=== PATIENT | female | born 1950 | race Caucasian/White ===

== ENCOUNTER 2023-04-20 13:31 | Emergency (ER) | payer OTHER ==
--- OUTSIDE RECORDS SUMMARY | 2023-04-20 13:35 | XMS REPORT | Continuity of Care Document ---
:[address] [facility] t Address [address] [facility] [address] [place] [address] Care Team Providers Name Role Phone Asked, No Pcp Primary Care Physician Unavailable PAULA GONSALES Attending Clinician Unavailable Problems This patient has no known problems. Allergies, Adverse Reactions, Alerts This patient has no known allergies or adverse reactions. Social History Social Habit Start Date Stop Date Quantity Comments Source Gender identity [facility] Sexual orientation Method [facility] Sex Assigned At [birth year] Met [facility] 00:00:00 00:00:00 Smoking Status Start Date Stop Date Source Tobacco smoking consumption unknown [facility] Medications This patient has no known medications. Immunizations Ordered Immunization Filled Immunization Date Status Commen ts Source Name Name PFIZER COVID-19 MRNA 2021-09-23 Completed [facility] VACCINATION 00:00:00 Hospital PFIZER COVID-19 MRNA 2021-01-22 Completed Meth odist VACCINATION 00:00:00 [facility] PFIZER COVID-19 MRNA 2021-01-01 Completed Meth odist VACCINATION 00:00:00 Hospital Procedures This patient has no known procedures. Plan of Care Planned Activity Planned Date Details Comments Source Future Scheduled 2023-03-02 SHINGLES VACCINES (1 Met [facility] Test 12:00:26 of 2) [code = SHINGLES VACCINES (1 of 2)] Future Scheduled 2023-03-02 65+ PNEUMOCOCCAL [facility] Test 12:00:26 VACCINE (1 - PCV) [code = 65+ PNEUMOCOCCAL VACCINE (1 - PCV)] Future Scheduled 2023-03-02 COVID-19 VACCINE (4 - Me [facility] Test 12:00:26 Booster for Pfizer series) [code = COVID-19 VACCINE (4 - Booster for Pfizer series)] Future Scheduled 2023-03-02 INFLUENZA [facility]ACCINE [facility] 12:00:26 [code = INFLUENZA VACCINE] Future Scheduled 2023-03-02 BREAST CANCER [facility] Test 12:00:26 SCREENING [code = BREAST CANCER SCREENING] Future Scheduled 2023-03-02 COLONOSCOPY SCREENING [facility] Test 12:00:26 [code = COLONOSCOPY SCREENING] Encounters Start End Encounter Admission Attending Care Care Encounter Source Date/Time Date/Time Type Type Clinicians Facility Department ID 2021-09-23 2021-09-23 Outpatient [facility] [id number] [place] 00:00:00 00:00:[address] 2021-01-22 2021-01-22 Outpatient DRU [facility] [id number] [place] 00:00:00 00:00:00 PAULA [address] 2021-01-01 2021-01-01 Outpatient [facility] [id number] [place] 00:00:00 00:00:[address] Results This patient has no known results.
[2023-04-20 14:07] LABS: Absolute Lymphocytes (CBC) 2.2 K/uL (0.7-4.9); Hematocrit 42.6 % (36.0-45.0); Lymphocytes % 25.6 % (15.3-44.8); MCV 88.5 fL (80-100); MPV 8.8 fL (7.6-11.3); RBC Red Blood Cell Count 4.82 M/uL (3.86-4.86)
[2023-04-20 14:38] LABS: Albumin 3.5 g/dL (3.4-5.0); Bilirubin Direct 0.2 mg/dL (0-0.2); Bilirubin Indirect, Calculated 0.5 mg/dL (0.2-0.8); Bilirubin Total 0.7 mg/dL (0.2-1.0); Potassium 2.8 mEq/L (3.5-5.1); Protein, Total 6.9 g/dL (6.4-8.2); Troponin High Sensitivity 4.1 pg/mL (<58.9)
[2023-04-20] MEDS ORDERED: POTASSIUM CL SA 10 MEQ TAB PO ONE (15:08)
[2023-04-20] MEDS ORDERED: KCL 20 MEQ/100 mL IVPB 100 ML IV ONE (15:08)
[2023-04-20] MEDS ORDERED: NA CHLORIDE 0.9% 1,000 ML ONE (15:55)
--- NOTE | 2023-04-20 17:28 | RAD REPORT ---
EXAM DESCRIPTION: CT - Abdomen Pelvis W Contrast - 04/20/2023 4:24 pm CLINICAL HISTORY: Abdominal pain/left lower quadrant pain COMPARISON: 2014 TECHNIQUE: Computed axial tomography of the abdomen pelvis was obtained. 100 cc Isovue-300 was admin istered intravenously. Oral contrast was not requested which limits evaluation of bowel and appendix All CT scans are performed using dose optimization technique as appropriate and may include automated exposure control or mA/KV adjustment according to patient size. FINDINGS: The liver, spleen, pancreas, adrenal and right kidney appear unremarkable. Small nonobstru cting left renal calculus There is no evidence of diverticulitis. Cholecystectomy. Tiny umbilical hernia Hysterectomy. No adnexal mass IMPRESSION: No acute abnormality is displayed.
--- NOTE | 2023-04-20 17:32 | ER ---
Nurse's Notes [facility] Name: Toshia Steel Age: 73 yrs Sex: Female : 1950 Arrival Date: 04/20/2023 Time: 13:31 Bed 6 Private MD: Diagnosis: Diarrhea, unspecified;Syncope Near Presentation: 04/20 13:36 Chief complaint: EMS states: toned out to [facility] for abdominal cramping, ld1 diaphoresis attempting to have bowel movement. Pt reports episode of ASHOK arm weakness "Funny feeling." Diaphoretic upon arrival, c/o abdominal pain. Coronavirus screen: At this time, the client does not indicate any symptoms associated with coronavirus-19. Ebola Screen: No symptoms or risks identified at this time. Initial Sepsis Screen: Does the patient meet any 2 criteria? No. Patient's initial sepsis screen is negative. Does the patient have a suspected source of infection? No. Patient's initial sepsis screen is negative. Risk Assessment: Do you want to hurt yourself or someone else? Patient reports no desire to harm self or others. Onset of symptoms was April 20, 2023. 13:36 Method Of Arrival: EMS: [facility] ld1 13:36 Acuity: JORDAN 3 ld1 Triage Assessment: 13:38 General: Appears in no apparent distress. comfortable, Behavior is cooperative, ld1 anxious. Pain: Complains of pain in abdomen Pain does not radiate. Pain currently is 8 out of 10 on a pain scale. Quality of pain is described as throbbing. EENT: No signs and/or symptoms were reported regarding the EENT system. Neuro: Level of Consciousness is awake, alert, obeys commands, Oriented to person, place, time, situation. Cardiovascular: Capillary refill < 3 seconds Patient's skin is warm and dry. Cardiovascular:. Respiratory: Airway is patent Respiratory effort is even, unlabored. GI: Abdomen is round non-distended, Reports lower abdominal pain, upper abdominal pain. : No signs and/or symptoms were reported regarding the genitourinary system. Derm: Skin is diaphoretic. Musculoskeletal: No signs and/or symptoms reported regarding the musculoskeletal system. Historical: - Allergies: 13:38 PENICILLINS; ld1 13:38 Sulfa (Sulfonamide Antibiotics); ld1 - Home Meds: 13:38 Lexapro 30 mg Oral tab 1 tab once daily [Active]; hydrochlorothiazide 25 mg oral tablet ld1 once [Active]; lisinopril 10 mg Oral tab 1 tab once daily [Active]; aspirin 81 mg Oral TbEC 1 tab once daily [Active]; - PMHx: 13:38 Breast Fibroids; Crohn's; Hypertension; ld1 - PSHx: 13:38 Total abdominal hysterectomy; Cholecystectomy; Breast augmentation; ld1 - Immunization history:: Adult Immunizations up to date, Client reports receiving the 2nd dose of the Covid vaccine. - Social history:: Smoking status: Patient denies any tobacco usage or history of. Patient/guardian denies using alcohol. Screenin:41 [facility] ED Fall Risk Assessment (Adult) History of falling in the last 3 months, ld1 including since admission No falls in past 3 months (0 pts). Abuse screen: Denies threats or abuse. Denies injuries from another. Nutritional screening: No deficits noted. Tuberculosis screening: No symptoms or risk factors identified. Assessment: 13:41 Reassessment: See triage assessment. ld1 15:00 Reassessment: Patient appears in no apparent distress at this time. No changes from ld1 previously documented assessment. 17:30 Reassessment: Patient appears in no apparent distress at this time. No changes from ld1 previously documented assessment. Patient and/or family updated on plan of care and expected duration. Pain level reassessed. Patient is alert, oriented x 3, equal unlabored respirations, skin warm/dry/pink. Vital Signs: 13:36 BP 82 / 69; Pulse 81; Resp 28; Temp 97.6(TE); Pulse Ox 100% on R/A; Weight 78 kg; Pain ld1 8/10; 14:12 BP 99 / 57; Pulse 81; Resp 10; Pulse Ox 98% ; ld1 15:15 BP 125 / 50; Pulse 83; Resp 18; Pulse Ox 100% on R/A; ld1 16:02 BP 124 / 63; Pulse 83; Pulse Ox 98% on R/A; ap3 17:27 BP 135 / 86; Pulse 83; Resp 18; Pulse Ox 100% on R/A; ld1 17:30 BP 141 / 79; Pulse 81; Resp 18; Pulse Ox 100% on R/A; ld1 13:36 Pain Scale: Adult ld1 ED Course: 13:33 Patient arrived in ED. kj1 13:36 Paloma Gallagher, RN is Primary Nurse. ld1 13:37 Wayne Painter MD is Attending Physician. bs3 13:38 Triage completed. ld1 13:38 Arm band placed on right wrist. ld1 13:41 Patient has correct armband on for positive identification. Placed in gown. Bed in low ld1 position. Call light in reach. Side rails up X2. monitoring tech on. Pulse ox on. NIBP on. Door closed. Noise minimized. Warm blanket given. 13:41 No provider procedures requiring assistance completed. Maintain EMS IV. Dressing ld1 intact. Good blood return noted. Site clean \\T\\ dry. Gauge \\T\\ site: 20G LAC. 14:39 Chest Single View XRAY In Process Unspecified. EDMS 16:26 CT Abd/Pelvis - IV Contrast Only In Process Unspecified. EDMS 17:30 IV discontinued, intact, bleeding controlled, No redness/swelling at site. ld1 Administered Medications: 13:54 Drug: NS 0.9% IV 1000 ml Route: IV; Rate: 1000 ml; Site: right antecubital; ld1 15:11 Drug: Potassium Chloride IV 20 mEq Route: IV; Rate: bolus; Site: left antecubital; ld1 15:11 Drug: Potassium Chloride PO 40 mEq Route: PO; ld1 Medication: 13:41 VIS not applicable for this client. ld1 Outcome: 17:30 Discharged to home ambulatory, with family. ld1 17:30 Condition: stable 17:30 Discharge instructions given to patient, family, Instructed on discharge instructions, follow up and referral plans. Demonstrated understanding of instructions, follow-up care. 17:31 Discharge ordered by . bs3 18:05 Patient left the ED. ld1 Signatures: Dispatcher [employer] EDMS Roxane Schaffer RN RN ap3 Jackson, Kandis kj1 Paloma Gallagher RN RN ld1 Wanye Painter MD MD bs3
--- NOTE | 2023-04-20 17:32 | EDPHYS ---
Physician Documentation [facility] Name: Toshia Steel Age: 73 yrs Sex: Female : 1950 Arrival Date: 04/20/2023 Time: 13:31 Bed 6 Private MD: ED Physician Wayne Painter HPI: 04/20 13:45 This 73 yrs old Female presents to ER via EMS with complaints of tingling, bs3 generalized weakness. 13:45 73yo f hx of crohn's, htn presents with episode of syncope. She was straining on the bs3 toilet after eating something funny and then had approximately 2L of diarrhea. She got lightheaded, dizzy, felt like she was going to pass out and developed tinging in her left arm and right fingers. She now notes that her abdominal cramping is significantly better she denies any chest pain or shortness of breath. Historical: - Allergies: 13:38 PENICILLINS; ld1 13:38 Sulfa (Sulfonamide Antibiotics); ld1 - Home Meds: 13:38 Lexapro 30 mg Oral tab 1 tab once daily [Active]; hydrochlorothiazide 25 mg oral tablet ld1 once [Active]; lisinopril 10 mg Oral tab 1 tab once daily [Active]; aspirin 81 mg Oral TbEC 1 tab once daily [Active]; - PMHx: 13:38 Breast Fibroids; Crohn's; Hypertension; ld1 - PSHx: 13:38 Total abdominal hysterectomy; Cholecystectomy; Breast augmentation; ld1 - Immunization history:: Adult Immunizations up to date, Client reports receiving the 2nd dose of the Covid vaccine. - Social history:: Smoking status: Patient denies any tobacco usage or history of. Patient/guardian denies using alcohol. ROS: 13:45 Constitutional: Negative for fever, chills bs3 13:45 All other systems are negative. Exam: 13:45 Constitutional: This is a well developed, well nourished patient who is awake, alert, bs3 and in no acute distress. Head/Face: Normocephalic, atraumatic. Eyes: Pupils equal round and reactive to light, extra-ocular motions intact. Lids and lashes normal. ENT: mmm, no posterior phyarngeal erythema Neck: Trachea midline, no thyromegaly, no neck stiffness Chest/axilla: Normal chest wall appearance and motion. Nontender with no deformity. No lesions are appreciated. Cardiovascular: Regular rate and rhythm with a normal S1 and S2. symmetric pulses in upper extremities Respiratory: Lungs have equal breath sounds bilaterally, clear to auscultation, no respiratory distress Abdomen/GI: Soft, non-tender, no rebound or guarding Skin: Warm, dry with normal turgor. Normal color with no rashes, no lesions, and no evidence of cellulitis. MS/ Extremity: Pulses equal, no cyanosis. Neurovascular intact. Full, normal range of motion. Neuro: Awake and alert, GCS 15, oriented to person, place, time, and situation. Cranial nerves II-XII grossly intact. Motor strength 5/5 in all extremities. Sensory grossly intact. 14:45 Normal sinus rhythm [address] elevations or depressions QTc 493 [address] no bs3 block as interpreted by myself Vital Signs: 13:36 BP 82 / 69; Pulse 81; Resp 28; Temp 97.6(TE); Pulse Ox 100% on R/A; Weight 78 kg; Pain ld1 8/10; 14:12 BP 99 / 57; Pulse 81; Resp 10; Pulse Ox 98% ; ld1 15:15 BP 125 / 50; Pulse 83; Resp 18; Pulse Ox 100% on R/A; ld1 16:02 BP 124 / 63; Pulse 83; Pulse Ox 98% on R/A; ap3 17:27 BP 135 / 86; Pulse 83; Resp 18; Pulse Ox 100% on R/A; ld1 17:30 BP 141 / 79; Pulse 81; Resp 18; Pulse Ox 100% on R/A; ld1 13:36 Pain Scale: Adult ld1 MDM: 13:35 Patient medically screened. bs3 13:45 Data reviewed: vital signs, nurses notes. ED course: Patient with presyncope in the bs3 setting of straining during a bowel movement likely related to vasovagal response she is relatively hypotensive here this may be simply be fluid shifts given her voluminous diarrhea she has no chest pain or shortness of breath I doubt she has a dissection or AAA but we will do serial exams give fluid and observe. 17:31 ED course: CT negative for acute pathology will discharge home. bs3 04/20 13:44 Order name: Basic Metabolic Panel; Complete Time: 14:44 bs3 04/20 13:44 Order name: CBC with Diff; Complete Time: 14:44 04/20 13:44 Order name: Troponin HS; Complete Time: 14:44 04/20 13:44 Order name: LFT's; Complete Time: 14:44 bs3 04/20 13:56 Order name: Chest Single View XRAY 04/20 15:45 Order name: CT Abd/Pelvis - IV Contrast Only; Complete Time: 17:31 bs3 04/20 13:44 Order name: EKG; Complete Time: 13:45 bs04/20 13:44 Order name: Cardiac monitoring; Complete Time: 13:46 04/20 13:44 Order name: EKG - Nurse/Tech; Complete Time: 14:03 04/20 13:44 Order name: IV Saline Lock; Complete Time: 13:54 bs04/20 13:44 Order name: Labs collected and sent; Complete Time: 13:54 04/20 13:44 Order name: O2 Per Protocol; Complete Time: 13:46 04/20 13:44 Order name: O2 Sat Monitoring; Complete Time: 13:46 bs3 Administered Medications: 13:54 Drug: NS 0.9% IV 1000 ml Route: IV; Rate: 1000 ml; Site: right antecubital; ld1 15:11 Drug: Potassium Chloride IV 20 mEq Route: IV; Rate: bolus; Site: left antecubital; ld1 15:11 Drug: Potassium Chloride PO 40 mEq Route: PO; ld1 Disposition Summary: 04/20/23 17:31 Discharge Ordered Location: Home bs3 Problem: new bs3 Symptoms: have improved bs3 Condition: Stable bs3 Diagnosis - Diarrhea, unspecified bs3 - Syncope Near bs3 Followup: bs3 - With: Private Physician - When: 2 - 3 days - Reason: Re-evaluation by your physician Discharge Instructions: - Discharge Summary Sheet bs3 - Diarrhea, Adult bs3 - Syncope bs3 Forms: - Medication Reconciliation Form bs3 - Thank You Letter bs3 - Antibiotic Education bs3 - Prescription Opioid Use bs3 Signatures: Dispatcher [employer] EDMS Paloma Gallagher RN RN ld1 Wayne Painter MD MD bs3
[2023-04-20 18:10] VITALS: TEMP 97.6
[2023-04-20 18:15] VITALS: O2SAT 100
[2023-04-20 18:16] VITALS: BP 141/79
--- NOTE | 2023-04-20 21:54 | RAD REPORT ---
EXAM DESCRIPTION: [facility] Single View04/20/2023 9:41 pm CLINICAL HISTORY: cough COMPARISON: none FINDINGS: The lungs appear clear of acute infiltrate. The heart is normal size IMPRESSION: No acute abnormalities displayed
--- NOTE | 2023-04-23 07:33 | EKG ---
Test Date: 2023-04-20 Test Time: 14:01:29 Production Gear Cutter: BP MEASUREMENT RESULTS: Intervals: Rate: 83 MA: 176 QRSD: 88 QT: 420 QTc: 493 Sharon: P: 31 MA: 176 QRS: 25 T: 89 INTERPRETIVE STATEMENTS: Normal sinus rhythm Lateral infarct, age undetermined Abnormal ECG No previous ECG available for comparison Electronically Signed On 04-23-23 07:26:08 CDT by Jaden Hanks
== END 2023-04-20 18:05 | disposition home or self-care (01) ==
LOC: ER 13:31
DX: R55 Syncope and collapse (principal); R19.7 Diarrhea, unspecified; I10 Essential (primary) hypertension; Z79.82 Long term (current) use of aspirin; Z88.0 Allergy status to penicillin; Z88.2 Allergy status to sulfonamides; Z98.82 Breast implant status
CPT/HCPCS: 93005; 85025; 80048; 36415; 80076; 84484; 74177; 71045; 96374; 99285; Q9967; J3480; J7030

== ENCOUNTER 2024-04-02 16:29 | Emergency (ER) | payer OTHER ==
[2024-04-02] MEDS ORDERED: NA CHLORIDE 0.9% 1,000 ML ONE (17:07)
[2024-04-02 17:22] LABS: Absolute Eosinophils 0.1 K/uL (0-0.5); Absolute Lymphocytes (CBC) 1.5 K/uL (0.7-4.9); Absolute Monocytes 0.3 K/uL (0.1-1.3); Absolute Neutrophil 3.4 K/uL (1.8-8.0); Basophils % 0.8 % (0-1.3); Eosinophils % 1.5 % (0-4.4); Hematocrit 39.7 % (36.0-45.0); Hemoglobin 13.2 g/dL (12.0-15.0); Lymphocytes % 28.5 % (15.3-44.8); MCH 29.6 pg (27.0-35.0); MCHC 33.2 g/dL (32.0-36.0); MCV 89.4 fL (80-100); MPV 7.8 fL (7.6-11.3); Monocytes % 5.9 % (3.3-12.3); Neutrophils % 63.3 % (41.7-73.7); Platelets 388 thou/uL (152-406); RBC Red Blood Cell Count 4.45 M/uL (3.86-4.86); Red Cell Distribution Width 12.9 % (12.1-15.2)
[2024-04-02 17:32] LABS: PT Prothrombin Time 10.6 SECONDS (9.5-12.5); Protime INR 0.96
[2024-04-02 17:41] LABS: Anion Gap 5.6 mEq/L (5.0-15.0); Potassium 3.6 mEq/L (3.5-5.1)
--- NOTE | 2024-04-02 18:48 | RAD REPORT ---
[facility] CLINICAL HISTORY: PALPITATIONS COMPARISON: Chest Single View dated 04/20/2023; Abdomen 1 View (KUB) dated 09/15/2017 TECHNIQUE: Portable AP view of the chest. FINDINGS: The lungs are clear. Left basilar atelectasis, stable. No pneumothorax or effusion. The ca rdiomediastinal contours are unremarkable. IMPRESSION: No acute cardiopulmonary process.
--- NOTE | 2024-04-02 18:56 | ER ---
Nurse's Notes [facility] Name: Toshia Steel Age: 74 yrs Sex: Female : 1950 Arrival Date: 04/02/2024 Time: 16:29 Bed DIS2 Private MD: Diagnosis: Palpitations;Dehydration Presentation: 04/02 16:45 Chief complaint: Patient states: pt was working out in her garage and felt dizzy and as6 like her heart was beating fast. Coronavirus screen: At this time, the client does not indicate any symptoms associated with coronavirus-19. Ebola Screen: No symptoms or risks identified at this time. Initial Sepsis Screen: Does the patient meet any 2 criteria? No. Patient's initial sepsis screen is negative. Does the patient have a suspected source of infection? No. Patient's initial sepsis screen is negative. Risk Assessment: Do you want to hurt yourself or someone else? Patient reports no desire to harm self or others. Onset of symptoms was April 02, 2024. 16:45 Method Of Arrival: Ambulatory as6 16:45 Acuity: JORDAN 3 as6 Triage Assessment: 16:46 General: Appears in no apparent distress. Behavior is calm, cooperative. Pain: Denies as6 pain. Neuro: Reports dizziness. Historical: - Allergies: 16:46 PENICILLINS; as6 16:46 Sulfa (Sulfonamide Antibiotics); as6 - PMHx: 16:46 Breast Fibroids; Crohn's; Hypertension; as6 - PSHx: 16:46 breast augmentation; Cholecystectomy; Total abdominal hysterectomy; as6 - Immunization history:: Adult Immunizations up to date. - Infectious Disease History:: Denies. - Social history:: Smoking status: Patient denies any tobacco usage or history of. - Family history:: not pertinent. - Hospitalizations: : No recent hospitalization is reported. Screenin:50 [facility] ED Fall Risk Assessment (Adult) History of falling in the last 3 months, rs5 including since admission No falls in past 3 months (0 pts) Confusion or Disorientation No (0 pts) Intoxicated or Sedated No (0 pts) Impaired Gait No (0 pts) Mobility Assist Device Used No (0 pt) Altered Elimination No (0 pt) Score/Fall Risk Level 0 - 2 = Low Risk Oriented to surroundings, Maintained a safe environment. Abuse screen: Denies threats or abuse. Nutritional screening: No deficits noted. Tuberculosis screening: No symptoms or risk factors identified. Assessment: 16:50 General: Appears in no apparent distress. comfortable, Behavior is calm, cooperative. rs5 Pain: Denies pain. Neuro: Level of Consciousness is awake, alert, obeys commands, Oriented to person, place, time, situation. 16:50 Cardiovascular: Patient's skin is warm and dry. Rhythm is regular. Cardiovascular: rs5 Reports "I felt my heart racing earlier and I became dizzy and that's why I'm here". Respiratory: Airway is patent Respiratory effort is even, unlabored, Respiratory pattern is regular, symmetrical. GI: Abdomen is round non-distended, Abd is soft and non tender X 4 quads. : No signs and/or symptoms were reported regarding the genitourinary system. EENT: No signs and/or symptoms were reported regarding the EENT system. Derm: Skin is intact, Skin is pink, warm \\T\\ dry. Musculoskeletal: Range of motion: intact in all extremities. 17:44 Reassessment: Patient and/or family updated on plan of care and expected duration. Pain rs5 level reassessed. Patient is alert, oriented x 3, equal unlabored respirations, skin warm/dry/pink. Patient denies pain at this time. 18:55 Reassessment: No changes from previously documented assessment. rs5 Vital Signs: 16:45 BP 116 / 70; Pulse 82; Resp 16 S; Temp 97.8(TE); Pulse Ox 97% on R/A; as6 16:47 Weight 63.96 kg (R); Height 5 ft. 6 in. (R); Pain 0/10; as6 17:44 BP 118 / 72; Pulse 84; Resp 17; Pulse Ox 99% on R/A; rs5 19:09 BP 122 / 75; Pulse 81; Resp 18; Pulse Ox 99% on R/A; rs5 16:47 Body Mass Index 22.76 (63.96 kg, 167.64 cm) as6 16:47 Pain Scale: Adult as6 ED Course: 16:31 Patient arrived in ED. mr 16:34 Ulises Jon MD is Attending Physician. rn 16:46 Triage completed. as6 16:46 Arm band placed on. as6 16:50 Patient has correct armband on for positive identification. Placed in gown. Bed in low rs5 position. Call light in reach. Side rails up X2. 16:50 No provider procedures requiring assistance completed. rs5 17:18 Collins Gomez, RN is Primary Nurse. rs5 17:33 XRAY Chest (1 view) In Process Unspecified. EDMS 19:31 IV discontinued, intact, bleeding controlled, No redness/swelling at site. Pressure vc1 dressing applied. 19:32 Provided Education on: F/U WITH PCP. vc1 Administered Medications: 17:08 Drug: NS 0.9% IV 1000 ml IV at 1000 ml once Route: IV; Rate: 1000 ml; Site: right rs5 antecubital; 17:30 Follow up: Response: No adverse reaction rs5 18:12 Follow up: IV Status: Completed infusion rs5 Medication: 17:42 VIS not applicable for this client. rs5 Outcome: 18:55 Discharge ordered by . rn 19:31 Discharged to home ambulatory, with significant other, vc1 19:31 Condition: improved 19:31 Discharge instructions given to patient, Instructed on discharge instructions, follow up and referral plans. Demonstrated understanding of instructions, follow-up care, 19:32 Patient left the ED. vc1 Signatures: Dispatcher [employer] EDMS Helena Padilla, Reg Ulises Wallace MD MD rn Slawson, Ashby, RN RN as6 Rima Montano RN RN vc1 Collins Gomez, RN RN rs5
--- NOTE | 2024-04-02 18:56 | EDPHYS ---
Physician Documentation [facility] Name: Toshia Steel Age: 74 yrs Sex: Female : 1950 Arrival Date: 04/02/2024 Time: 16:29 Bed DIS2 Private MD: ED Physician Ulises Jon HPI: 04/02 16:52 This 74 yrs old Female presents to ER via Ambulatory with complaints of Fast heart rn rate, Dizziness. 16:52 The patient presents with a history of heart racing. Context: The symptoms occur with rn light activity. Onset: The symptoms/episode began/occurred just prior to arrival. Duration: The patient or guardian reports multiple episodes, that are intermittent. Modifying factors: The symptoms are aggravated by light activity, The symptoms are alleviated by rest. Severity of symptoms: At their worst the symptoms were moderate in the emergency department the symptoms have improved. The patient has not experienced similar symptoms in the past. Patient reports palpitations and fast heart rate, happened earlier while was walking, not associated with shortness of breath or chest pain. No trauma. Not feeling sick recently. No fever. No chills. No vomiting or abdominal pain. Patient reports has Crohn's disease but nothing out of the ordinary with her GI system at this time. Patient does report 2 episodes of diarrhea that were nonbloody. No medication changes recently. Patient reports her watch showed heart rate up to 115 bpm, now back to normal and feels better.. Historical: - Allergies: 16:46 PENICILLINS; as6 16:46 Sulfa (Sulfonamide Antibiotics); as6 - PMHx: 16:46 Breast Fibroids; Crohn's; Hypertension; as6 - PSHx: 16:46 breast augmentation; Cholecystectomy; Total abdominal hysterectomy; as6 - Immunization history:: Adult Immunizations up to date. - Infectious Disease History:: Denies. - Social history:: Smoking status: Patient denies any tobacco usage or history of. - Family history:: not pertinent. - Hospitalizations: : No recent hospitalization is reported. ROS: 16:52 Constitutional: Negative for fever, chills, and weight loss, Eyes: Negative for injury, rn pain, redness, and discharge, ENT: Negative for injury, pain, and discharge, Neck: Negative for injury, pain, and swelling, Cardiovascular: Positive for palpitations Respiratory: Negative for shortness of breath, cough, wheezing, and pleuritic chest pain, Abdomen/GI: Negative for abdominal pain, nausea, vomiting, and constipation, Back: Negative for injury and pain, MS/Extremity: Negative for injury and deformity, Skin: Negative for injury, rash, and discoloration, Neuro: Positive for dizziness and generalized weakness with lightheadedness Exam: 16:52 Constitutional: This is a well developed, well nourished patient who is awake, alert, rn and in no acute distress. Ambulatory to triage without assistance or difficulty Eyes: Normal conjunctiva ENT: Dry mucous membranes Cardiovascular: Regular rate and rhythm. No pulse deficits. Respiratory: No increased work of breathing, no retractions or nasal flaring. Abdomen/GI: Soft, nontender MS/ Extremity: Pulses equal, no cyanosis. Neurovascular intact. Full, normal range of motion. Equal circumference. Neuro: Awake and alert, GCS 15, oriented to person, place, time, and situation. Cranial nerves II-XII grossly intact. Motor strength 5/5 in all extremities. Sensory grossly intact. Cerebellar exam normal. Normal gait. Vital Signs: 16:45 BP 116 / 70; Pulse 82; Resp 16 S; Temp 97.8(TE); Pulse Ox 97% on R/A; as6 16:47 Weight 63.96 kg (R); Height 5 ft. 6 in. (R); Pain 0/10; as6 17:44 BP 118 / 72; Pulse 84; Resp 17; Pulse Ox 99% on R/A; rs5 19:09 BP 122 / 75; Pulse 81; Resp 18; Pulse Ox 99% on R/A; rs5 16:47 Body Mass Index 22.76 (63.96 kg, 167.64 cm) as6 16:47 Pain Scale: Adult as6 MDM: 16:34 Patient medically screened. rn 18:54 Differential diagnosis: arrythmia, dehydration, stress disorder. Data reviewed: vital rn signs, nurses notes, lab test result(s), EKG, radiologic studies, plain films, and as a result, I will discharge patient. Counseling: I had a detailed discussion with the patient and/or guardian regarding the historical points, exam findings, and any diagnostic results supporting the discharge/admit diagnosis, lab results, radiology results, the need for outpatient follow up, to return to the emergency department if symptoms worsen or persist or if there are any questions or concerns that arise at home. Response to treatment: the patient's symptoms have resolved after treatment, the patient's condition has returned to base line, the patient is now symptom free, and as a result, I will discharge patient. Special discussion: I discussed with the patient/guardian in detail that at this point there is no indication for admission to the hospital. It is understood, however, that if the symptoms persist or worsen the patient needs to return immediately for re-evaluation. Based on the history and exam findings, there is no indication for further emergent testing or inpatient evaluation. I discussed with the patient/guardian the need to see the flow specialist for further evaluation of the symptoms. I discussed with the patient/guardian the need to see the primary care provider for further evaluation of the symptoms. ED course: Symptoms resolved prior to coming in. No acute findings other than possible dehydration which could fit with her mild tachycardia upon exertion. Patient never had chest pain. No ischemia on EKG. No PVCs or other abnormality on EKG. Normal vitals. Will discharge home with return precautions and recommend PCP and cardiology follow-up. I have personally reviewed all of the results, including but not limited to blood tests and imaging deemed necessary to safely discharge this patient at this time. All results given to and printed out for patient. I personally went over all the results with the patient and answered all questions. Patient will follow-up with PCP and or specialist as discussed. Return precautions given and understood.. 04/02 16:35 Order name: Basic Metabolic Panel; Complete Time: 18:15 rn 04/02 16:35 Order name: CBC with Diff; Complete Time: 18:15 rn 04/02 16:35 Order name: NT PRO-BNP; Complete Time: 18:15 rn 04/02 16:35 Order name: PT-INR; Complete Time: 18:15 rn 04/02 16:35 Order name: Troponin HS; Complete Time: 18:15 rn 04/02 16:35 Order name: XRAY Chest (1 view); Complete Time: 18:50 rn 04/02 16:35 Order name: Cardiac monitoring; Complete Time: 17:39 rn 04/02 16:35 Order name: EKG - Nurse/Tech; Complete Time: 17:40 rn 04/02 16:35 Order name: IV Saline Lock; Complete Time: 17:39 rn 04/02 16:35 Order name: Labs collected and sent; Complete Time: 17:39 rn 04/02 16:35 Order name: O2 Per Protocol; Complete Time: 17:39 rn 04/02 16:35 Order name: O2 Sat Monitoring; Complete Time: 17:39 rn Administered Medications: 17:08 Drug: NS 0.9% IV 1000 ml IV at 1000 ml once Route: IV; Rate: 1000 ml; Site: right rs5 antecubital; 17:30 Follow up: Response: No adverse reaction rs5 18:12 Follow up: IV Status: Completed infusion rs5 Disposition Summary: 04/02/24 18:55 Discharge Ordered Notes: Location: Home rn Problem: new rn Symptoms: have improved rn Condition: Stable rn Diagnosis - Palpitations rn - Dehydration rn Followup: rn - With: Private Physician - When: As needed - Reason: Recheck today's complaints, Re-evaluation by your physician Discharge Instructions: - Discharge Summary Sheet rn - Dehydration, Adult rn - Palpitations rn Forms: - Medication Reconciliation Form rn - 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 [facility] EDNM 16:54 16:52 Constitutional: Negative for fever, chills, and weight loss, Eyes: Negative for rn injury, pain, redness, and discharge, ENT: Negative for injury, pain, and discharge, Neck: Negative for injury, pain, and swelling, Cardiovascular: Positive for palpitations Respiratory: Negative for shortness of breath, cough, wheezing, and pleuritic chest pain, Abdomen/GI: Negative for abdominal pain, nausea, vomiting, diarrhea, and constipation, Back: Negative for injury and pain, MS/Extremity: Negative for injury and deformity, Skin: Negative for injury, rash, and discoloration, Neuro: Positive for dizziness and generalized weakness with lightheadedness rn
[2024-04-02 20:13] VITALS: BP 122/75; TEMP 97.8; O2SAT 99
--- NOTE | 2024-04-04 14:05 | EKG ---
Test Date: 2024-04-02 Test Time: 17:19:06 Parts Picker: [email or web address] MEASUREMENT RESULTS: Intervals: Rate: 79 MT: 202 QRSD: 80 QT: 418 QTc: 479 [place]: P: 59 MT: 202 QRS: 31 T: 87 INTERPRETIVE STATEMENTS: Normal sinus rhythm Normal ECG Compared to ECG 04/20/2023 14:01:29 Myocardial infarct finding no longer present Electronically Signed On 04-04-24 14:00:49 CDT by Álvaro Samuel
== END 2024-04-02 19:32 | disposition home or self-care (01) ==
LOC: ER 16:29
DX: E86.0 Dehydration (principal); I10 Essential (primary) hypertension; Z98.82 Breast implant status; Z88.0 Allergy status to penicillin; Z88.2 Allergy status to sulfonamides
CPT/HCPCS: 93005; 85025; 80048; 36415; 85610; 84484; 83880; 71045; 96360; 99284; J7030